=== PATIENT | male | born 1980 | race Caucasian/White ===

== ENCOUNTER 2024-02-01 09:52 | Inpatient (IN) | payer OTHER ==
[2024-02-01 10:10] VITALS: BMI 42.8
[2024-02-01] MEDS ORDERED: LOPERAMIDE HCL 2 MG CAPSULE PO PRN (10:49)
[2024-02-01] MEDS ORDERED: MAGNESIUM HYDROX 2400MG/30ML ORAL SUSPENSION 30 ML CUP PO PRN (10:49)
[2024-02-01] MEDS ORDERED: NICOTINE POLACRILEX 2 MG GUM BUC PRN (10:49)
[2024-02-01] MEDS ORDERED: NALOXONE (NYS OPIOID OVERDOSE PROGRAM) 4 MG/0.1 ML SPRAY NS PRN (10:49)
[2024-02-01] MEDS ORDERED: POLYETHYLENE GLYCOL (HEALTHYLAX) 3350 17 GM PACKET PO PRN (10:49)
[2024-02-01] MEDS ORDERED: ACETAMINOPHEN 325 MG TABLET (FP) PO PRN (10:49)
[2024-02-01] MEDS ORDERED: IBUPROFEN 600 MG TABLET (FP) PO PRN (10:49)
[2024-02-01] MEDS ORDERED: NALOXONE (NARCAN) HCL 4 MG/0.1 ML SPRAY NS PRN (10:49)
[2024-02-01] MEDS ORDERED: guaiFENesin 600 MG TABLET.ER (FP) PO PRN (10:49)
[2024-02-01] MEDS ORDERED: BISMUTH SUBSALICYLATE 262 MG/15 ML BTL PO PRN (10:49)
[2024-02-01] MEDS ORDERED: ONDANSETRON *ODT* 4 MG TABLET SL PRN (10:49)
[2024-02-01] MEDS ORDERED: DICYCLOMINE HCL 10 MG CAPSULE PO PRN (10:49)
[2024-02-01] MEDS ORDERED: hydrOXYzine PAMOATE 25 MG CAPSULE (FP) PO PRN (10:49)
[2024-02-01] MEDS ORDERED: BENZONATATE 200 MG CAPSULE PO PRN (10:49)
[2024-02-01] MEDS ORDERED: diazePAM 5 MG TABLET PO PRN (10:49)
[2024-02-01] MEDS ORDERED: MAG HYDROX/AL HYDROX/SIMETH 30 ML UNIT-DOSE CUP PO PRN (10:49)
[2024-02-01] MEDS ORDERED: IBUPROFEN 400 MG TABLET (FP) PO PRN (10:49)
[2024-02-01] MEDS ORDERED: BENZOCAINE/MENTHOL (CHLORASEPTIC ) LOZENGE MM PRN (10:49)
[2024-02-01] MEDS ORDERED: diazePAM 5 MG TABLET ONE (11:43)
[2024-02-01] MEDS ORDERED: INSULIN (NOVOLOG) ASPART 100 UNITS/ML 10ML VIAL ONE (11:44)
[2024-02-01] MEDS: diazePAM 5 MG TABLET PO SCH (11:45)
[2024-02-01] MEDS: INSULIN ASPART SLIDING SCALE (NOVOLOG) 1 VIAL SQ SCH (11:46)
[2024-02-01] MEDS: amLODIPine BESYLATE 5 MG TABLET (FP) PO ONE (13:36)
[2024-02-01] MEDS: METHOCARBAMOL 500 MG TABLET PO PRN (17:34)
[2024-02-01] MEDS: chlordiazePOXIDE HCL 25 MG CAPSULE PO PRN (18:28)
[2024-02-01] MEDS: INSULIN (LEVEMIR) 100 UNITS/ML UNITS SQ SCH (22:03)
[2024-02-01] MEDS: ATORVASTATIN CA 10 MG TABLET (FP) PO SCH (22:06)
[2024-02-01] MEDS: SACUBITRIL/VALSARTAN 24 MG-26 MG TABLET PO SCH (22:06)
[2024-02-01] MEDS: MELATONIN 5 MG TABLETS PO SCH (22:06)
[2024-02-01] MEDS: METOPROLOL TARTRATE 50 MG TABLET (FP) PO SCH (22:06)
[2024-02-01] MEDS: THIAMINE 100 MG TABLET PO SCH (22:06)
[2024-02-01] MEDS: ALBUTEROL SO4 HFA INHALER IH PRN (22:08)
[2024-02-01] MEDS: chlordiazePOXIDE HCL 25 MG CAPSULE PO SCH (22:09)
[2024-02-02] MEDS ORDERED: methaDONE HCL 10 MG TABLET PO SCH ×2 (08:30→09:15)
[2024-02-02] MEDS: methaDONE 40 MG, methaDONE 10 MG PO SCH (09:23)
[2024-02-02] MEDS ORDERED: PATIENT'S OWN MEDICATION (NON-FORMULARY) (Fluticasone Propion/Salmeterol [Wixela 250-50 In IH SCH (10:00)
[2024-02-02] MEDS ORDERED: methaDONE HCL 10 MG TABLET PO ONE (10:00)
[2024-02-02] MEDS: UMECLIDINIUM/VILANTEROL (ANORO) 62.5/25 MCG INHALER IH SCH (10:24)
[2024-02-02] MEDS: methaDONE 40 MG, methaDONE 30 MG PO SCH (10:25)
[2024-02-02] MEDS: amLODIPine BESYLATE 5 MG TABLET (FP) PO SCH (10:26)
[2024-02-02] MEDS: FOLIC ACID 1 MG TABLET (FP) PO SCH (10:26)
[2024-02-02] MEDS: PRENATAL VITAMINS W/ FOLIC ACID TABLET (FP) PO SCH (10:26)
[2024-02-02] MEDS: cloNIDine HCL 0.1 MG TABLET PO SCH (10:26)
[2024-02-02] MEDS: ASPIRIN 81 MG CHEWABLE TABLETS PO SCH (10:26)
[2024-02-02] MEDS: DIGOXIN 0.125 MG TABLET PO SCH (10:45)
[2024-02-02 11:20] LABS: HEMATOCRIT 44.8 % (35.4-49); HEMOGLOBIN 15.6 GM/dL (11.7-16.9); MCH 35.2 pg (25.7-33.7); MCHC 34.9 g/dl (32.0-35.9); MEAN CELL VOLUME 101.1 fl (80-96); MEAN PLT VOLUME 8.2 fl (7.5-11.1); PLATELET COUNT 139 10^3/uL (134-434); RBC 4.43 M/mm3 (4.00-5.60); RDW 13.4 % (11.9-15.9); WHITE BLOOD COUNT 6.5 K/mm3 (4.0-10.0)
[2024-02-02] MEDS ORDERED: INSULIN ASPART SLIDING SCALE (NOVOLOG) 1 VIAL SQ ONE (12:04)
[2024-02-02 13:24] LABS: POTASSIUM 4.4 mmol/L (3.5-5.1)
[2024-02-02 13:27] LABS: BLOOD UREA NITROGEN 9.4 mg/dL (7-18); CALCIUM 9.7 mg/dL (8.5-10.1)
[2024-02-02 13:30] LABS: CREATININE 0.7 mg/dL (0.55-1.3)
[2024-02-02 13:31] LABS: BILIRUBIN,TOTAL 2.2 mg/dL (0.2-1); TOT PROT 8.2 g/dl (6.4-8.2)
[2024-02-03] MEDS: chlordiazePOXIDE HCL 25 MG CAPSULE PO SCH (05:41)
[2024-02-03] MEDS ORDERED: diazePAM 5 MG TABLET PO SCH (06:00)
[2024-02-03] MEDS ORDERED: methaDONE HCL 10 MG TABLET PO ONE (10:00)
[2024-02-04] MEDS ORDERED: chlordiazePOXIDE HCL 10 MG CAPSULE PO PRN
[2024-02-04] MEDS ORDERED: cloNIDine HCL 0.1 MG TABLET PO PRN
[2024-02-04] MEDS: chlordiazePOXIDE HCL 10 MG CAPSULE PO SCH (05:51)
[2024-02-04] MEDS ORDERED: diazePAM 5 MG TABLET PO SCH (06:00)
[2024-02-04] MEDS ORDERED: methaDONE HCL 10 MG TABLET PO ONE (10:00)
[2024-02-04] MEDS: ERGOCALCIFEROL (VIT D2) 50,000 UNIT (1.25 MG) CAPSULE PO SCH (10:26)
[2024-02-04] MEDS ORDERED: INSULIN ASPART SLIDING SCALE (NOVOLOG) 1 VIAL SQ ONE (12:18)
[2024-02-05] MEDS: chlordiazePOXIDE HCL 10 MG CAPSULE PO SCH (05:31)
[2024-02-05] MEDS ORDERED: diazePAM 5 MG TABLET PO ONE (06:00)
[2024-02-05] MEDS ORDERED: methaDONE HCL 10 MG TABLET PO ONE (10:00)
[2024-02-06] MEDS: chlordiazePOXIDE HCL 10 MG CAPSULE PO ONE (05:39)
[2024-02-06] MEDS ORDERED: NALOXONE (NYS OPIOID OVERDOSE PROGRAM) 4 MG/0.1 ML SPRAY NS PRN (08:00)
[2024-02-06 09:19] VITALS: RESP 18
[2024-02-06] MEDS ORDERED: methaDONE HCL 10 MG TABLET PO ONE (10:00)
[2024-02-06] MEDS ORDERED: hydrOXYzine PAMOATE 50 MG CAPSULE (FP) PO PRN (10:49)
[2024-02-06] MEDS ORDERED: INSULIN ASPART SLIDING SCALE (NOVOLOG) 1 VIAL SQ ONE (11:45)
[2024-02-06 13:15] VITALS: BP 95/62; PULSE 78; TEMP 97.3
[2024-02-06] MEDS ORDERED: PRAZOSIN HCL 1 MG CAPSULE PO SCH (22:00)
[2024-02-07] MEDS ORDERED: SERTRALINE HCL 50 MG TABLET (FP) PO SCH (10:00)
[2024-02-07] MEDS ORDERED: methaDONE HCL 10 MG TABLET PO ONE (10:00)
== END 2024-02-06 14:06 | disposition other institution (70) | DRG 773 ==
LOC: YASAS 09:52 → Y3N 11:43
PROVIDERS: ADMIT Allergy & Immunology; ATTEND Surgery
PROC: HZ2ZZZZ Detoxification Services for Substance Abuse Treatment (ICD-10-PCS; principal; 2024-02-01)
DX: F10.230 Alcohol dependence with withdrawal, uncomplicated (principal); F11.20 Opioid dependence, uncomplicated; F13.20 Sedative, hypnotic or anxiolytic dependence, uncomplicated; F17.210 Nicotine dependence, cigarettes, uncomplicated; F31.9 Bipolar disorder, unspecified; F41.0 Panic disorder [episodic paroxysmal anxiety]; F41.9 Anxiety disorder, unspecified; I11.0 Hypertensive heart disease with heart failure; I50.9 Heart failure, unspecified; E78.5 Hyperlipidemia, unspecified; J44.9 Chronic obstructive pulmonary disease, unspecified; G47.30 Sleep apnea, unspecified; E11.9 Type 2 diabetes mellitus without complications; Z79.4 Long term (current) use of insulin; M54.42 Lumbago with sciatica, left side; G89.29 Other chronic pain; Z86.73 Personal history of transient ischemic attack (TIA), and cerebral infarction without residual deficits
CPT/HCPCS: 36415; 80053; 80162; 80305; 80307; 82962; 85027; 86780; 87811; 93005; 93010

== ENCOUNTER 2024-02-06 14:18 | Inpatient (IN) | payer OTHER ==
[2024-02-06] MEDS ORDERED: ACETAMINOPHEN 325 MG TABLET (FP) PO PRN (17:40)
[2024-02-06] MEDS ORDERED: METHOCARBAMOL 500 MG TABLET PO PRN (17:40)
[2024-02-06] MEDS ORDERED: POLYETHYLENE GLYCOL (HEALTHYLAX) 3350 17 GM PACKET PO PRN (17:40)
[2024-02-06] MEDS ORDERED: BENZONATATE 200 MG CAPSULE PO PRN (17:40)
[2024-02-06] MEDS ORDERED: IBUPROFEN 400 MG TABLET (FP) PO PRN (17:40)
[2024-02-06] MEDS ORDERED: NALOXONE (NARCAN) HCL 4 MG/0.1 ML SPRAY NS PRN (17:40)
[2024-02-06] MEDS ORDERED: guaiFENesin 600 MG TABLET.ER (FP) PO PRN (17:40)
[2024-02-06] MEDS ORDERED: NALOXONE HCL 0.4 MG/ML VIAL IVPUSH PRN (17:40)
[2024-02-06] MEDS ORDERED: LOPERAMIDE HCL 2 MG CAPSULE PO PRN (17:40)
[2024-02-06] MEDS ORDERED: MAG HYDROX/AL HYDROX/SIMETH 30 ML UNIT-DOSE CUP PO PRN (17:40)
[2024-02-06] MEDS: ATORVASTATIN CA 10 MG TABLET (FP) PO SCH (21:43)
[2024-02-06] MEDS: THIAMINE 100 MG TABLET PO SCH (21:43)
[2024-02-06] MEDS: SACUBITRIL/VALSARTAN 24 MG-26 MG TABLET PO SCH (21:44)
[2024-02-06] MEDS: METOPROLOL TARTRATE 50 MG TABLET (FP) PO SCH (21:46)
[2024-02-06] MEDS: MELATONIN 5 MG TABLETS PO SCH (21:47)
[2024-02-06] MEDS: INSULIN (LEVEMIR) 100 UNITS/ML UNITS SQ SCH (21:48)
[2024-02-07] MEDS ORDERED: methaDONE HCL 40 MG DISPERSABLE TABLET PO SCH (06:00)
[2024-02-07] MEDS: methaDONE 40 MG, methaDONE 30 MG PO SCH (06:25)
[2024-02-07] MEDS: hydrOXYzine PAMOATE 25 MG CAPSULE (FP) PO PRN ×2 (06:25→14:59)
[2024-02-07] MEDS ORDERED: hydrOXYzine PAMOATE 25 MG CAPSULE (FP) PO PRN (08:30)
[2024-02-07] MEDS ORDERED: PATIENT'S OWN MEDICATION (NON-FORMULARY) (Fluticasone Propion/Salmeterol [Wixela 250-50 In IH SCH (10:00)
[2024-02-07] MEDS: ASPIRIN 81 MG CHEWABLE TABLETS PO SCH (10:01)
[2024-02-07] MEDS: PRENATAL VITAMINS W/ FOLIC ACID TABLET (FP) PO SCH (10:01)
[2024-02-07] MEDS: amLODIPine BESYLATE 5 MG TABLET (FP) PO SCH (10:01)
[2024-02-07] MEDS: UMECLIDINIUM/VILANTEROL (ANORO) 62.5/25 MCG INHALER IH SCH (10:02)
[2024-02-07] MEDS: DIGOXIN 0.125 MG TABLET PO SCH (10:04)
[2024-02-07] MEDS: SERTRALINE HCL 25 MG TABLET (FP) PO SCH (10:05)
[2024-02-07] MEDS: PNEUMOC 20-VAL CONJ-DIP CRM/PF 0.5 ML SYRINGE IM ONE (11:57)
[2024-02-07] MEDS: PRAZOSIN HCL 1 MG CAPSULE PO SCH (21:42)
[2024-02-08] MEDS ORDERED: INSULIN (NOVOLOG) ASPART 100 UNITS/ML 10ML VIAL ONE ×2 (11:04→17:37)
[2024-02-08] MEDS: INSULIN ASPART SLIDING SCALE (NOVOLOG) 1 VIAL SQ SCH (11:06)
[2024-02-08] MEDS ORDERED: INSULIN ASPART SLIDING SCALE (NOVOLOG) 1 VIAL SQ SCH (16:30)
[2024-02-09] MEDS ORDERED: INSULIN (NOVOLOG) ASPART 100 UNITS/ML 10ML VIAL ONE ×2 (06:19→12:04)
[2024-02-10] MEDS: ALBUTEROL SO4 HFA INHALER IH PRN (10:30)
[2024-02-10] MEDS ORDERED: INSULIN (NOVOLOG) ASPART 100 UNITS/ML 10ML VIAL ONE (12:16)
[2024-02-11] MEDS: METOPROLOL TARTRATE 50 MG TABLET (FP) PO SCH (10:40)
[2024-02-11] MEDS ORDERED: INSULIN (NOVOLOG) ASPART 100 UNITS/ML 10ML VIAL ONE (12:02)
[2024-02-11] MEDS: MAGNESIUM HYDROX 2400MG/30ML ORAL SUSPENSION 30 ML CUP PO PRN (21:43)
[2024-02-12] MEDS ORDERED: INSULIN (NOVOLOG) ASPART 100 UNITS/ML 10ML VIAL ONE ×3 (07:19→22:21)
[2024-02-12] MEDS: IBUPROFEN 600 MG TABLET (FP) PO PRN (10:05)
[2024-02-12] MEDS: GABAPENTIN 300 MG CAPSULE PO SCH (14:43)
[2024-02-12] MEDS: amLODIPine BESYLATE 5 MG TABLET (FP) PO SCH (14:43)
[2024-02-12] MEDS: SACUBITRIL/VALSARTAN 24 MG-26 MG TABLET PO SCH ×2 (14:43→21:54)
[2024-02-12] MEDS: SACUBITRIL/VALSARTAN 24 MG-26 MG TABLET PO ONE (15:34)
[2024-02-13] MEDS ORDERED: INSULIN (NOVOLOG) ASPART 100 UNITS/ML 10ML VIAL ONE (11:49)
[2024-02-14] MEDS: methaDONE 40 MG, methaDONE 30 MG PO SCH (06:02)
[2024-02-14] MEDS ORDERED: INSULIN (NOVOLOG) ASPART 100 UNITS/ML 10ML VIAL ONE ×2 (06:26→11:55)
[2024-02-15] MEDS: BENZOCAINE/MENTHOL (CHLORASEPTIC ) LOZENGE MM PRN (10:03)
[2024-02-15 14:13] LABS: INR 1.2 (0.83-1.09); PROTHROMBIN TIME (PATIENT) 13.5 SEC (9.7-13.0)
[2024-02-15] MEDS ORDERED: INSULIN (NOVOLOG) ASPART 100 UNITS/ML 10ML VIAL ONE (16:31)
[2024-02-15] MEDS ORDERED: INSULIN (LEVEMIR) 100 UNITS/ML UNITS SQ ONE (21:02)
[2024-02-16] MEDS ORDERED: INSULIN (NOVOLOG) ASPART 100 UNITS/ML 10ML VIAL ONE ×2 (12:08→22:00)
[2024-02-17] MEDS ORDERED: INSULIN (NOVOLOG) ASPART 100 UNITS/ML 10ML VIAL ONE ×2 (11:04→16:34)
[2024-02-17] MEDS: LACTULOSE 20 GM/30 ML UDC (FOR ORAL USE ONLY) PO SCH (21:47)
[2024-02-19] MEDS ORDERED: INSULIN (NOVOLOG) ASPART 100 UNITS/ML 10ML VIAL ONE (05:59)
[2024-02-19 06:31] VITALS: BP 111/61; RESP 18; TEMP 97.8
[2024-02-19] MEDS: NALOXONE (NYS OPIOID OVERDOSE PROGRAM) 4 MG/0.1 ML SPRAY NS SCH (09:38)
[2024-02-19 09:40] VITALS: PULSE 58
== END 2024-02-19 10:35 | disposition home or self-care (01) | DRG 772 ==
LOC: YASAS 14:18 → Y5N 14:19
PROVIDERS: ADMIT Surgery; ATTEND Psychiatry & Neurology Pain Medicine
PROC: HZ42ZZZ Group Counseling for Substance Abuse Treatment, Cognitive-Behavioral (ICD-10-PCS; principal; 2024-02-06)
DX: F10.20 Alcohol dependence, uncomplicated (principal); F11.20 Opioid dependence, uncomplicated; F13.20 Sedative, hypnotic or anxiolytic dependence, uncomplicated; F17.210 Nicotine dependence, cigarettes, uncomplicated; F31.9 Bipolar disorder, unspecified; F20.9 Schizophrenia, unspecified; F19.282 Other psychoactive substance dependence with psychoactive substance-induced sleep disorder; G47.33 Obstructive sleep apnea (adult) (pediatric); I25.10 Atherosclerotic heart disease of native coronary artery without angina pectoris; I11.0 Hypertensive heart disease with heart failure; I50.9 Heart failure, unspecified; Z95.5 Presence of coronary angioplasty implant and graft; J41.1 Mucopurulent chronic bronchitis; K21.9 Gastro-esophageal reflux disease without esophagitis; E78.2 Mixed hyperlipidemia; E11.9 Type 2 diabetes mellitus without complications; Z79.4 Long term (current) use of insulin; M54.42 Lumbago with sciatica, left side; G89.29 Other chronic pain
CPT/HCPCS: 36415; 80162; 82140; 82652; 82962; 83735; 85610; 86803; 87522; 90677; G0009

== ENCOUNTER 2024-06-07 22:15 | Inpatient (IN) | payer OTHER ==
[2024-06-07] MEDS: chlordiazePOXIDE HCL 25 MG CAPSULE PO ONE (23:01)
[2024-06-07] MEDS ORDERED: NALOXONE HCL 0.4 MG/ML VIAL ONE (23:03)
[2024-06-07 23:17] LABS: HEMATOCRIT 34.4 % (40.1-51.0); HEMOGLOBIN 12.5 g/dL (13.7-17.5); MCHC 36.3 g/dl (32.3-36.5); MEAN CELL VOLUME 92.5 fl (79.0-92.2); MEAN PLT VOLUME 9.5 fl (9.4-12.4); PLATELET COUNT # 79 x10^3/uL (163-337); RDW 21.6 % (12.1-15.9)
[2024-06-07 23:36] LABS: POTASSIUM 3.9 mmol/L (3.5-5.1)
[2024-06-07 23:39] LABS: ALBUMIN 2.5 g/dl (3.4-5.0); BLOOD UREA NITROGEN 8.8 mg/dL (7-18)
[2024-06-07 23:42] LABS: CREATININE 0.9 mg/dL (0.55-1.3)
[2024-06-07 23:43] LABS: BILIRUBIN,TOTAL 5.2 mg/dL (0.2-1); TOT PROT 7.6 g/dl (6.4-8.2)
[2024-06-07 23:47] LABS: N-TERMINAL BNP 69.6 pg/ml (5-125)
[2024-06-07 23:49] LABS: VENOUS BASE EXCESS 2.8 mmol/L (-2-2); VENOUS O2 SATURATION 92.2 % (70-80); VENOUS PCO2 45.5 mmHg (38-52); VENOUS PH 7.408 (7.310-7.410)
[2024-06-08 00:40] LABS: CHOLESTEROL 252 mg/dL (50-200)
[2024-06-08 00:41] LABS: LDL CHOLESTEROL (ONLY SJRH) 152 mg/dL (5-100)
[2024-06-08 00:42] LABS: HDL CHOLESTEROL 22 mg/dL (40-60)
[2024-06-08] MEDS ORDERED: chlordiazePOXIDE HCL 25 MG CAPSULE ONE (00:56)
[2024-06-08] MEDS: chlordiazePOXIDE HCL 25 MG CAPSULE PO ONE (01:01)
[2024-06-08] MEDS: LACTULOSE 20 GM/30 ML UDC (FOR RECTAL USE ONLY) PR ONE (01:21)
[2024-06-08] MEDS ORDERED: LACTULOSE 20 GM/30 ML UDC (FOR ORAL USE ONLY) ONE (01:43)
[2024-06-08] MEDS: LACTULOSE 20 GM/30 ML UDC (FOR ORAL USE ONLY) PO ONE (01:53)
[2024-06-08] MEDS: SODIUM CHLORIDE 1,000 ML IV SCH (01:53)
[2024-06-08 02:07] LABS: INR 1.59 (0.83-1.09); PROTHROMBIN TIME (PATIENT) 17.5 SEC (9.7-13.0)
[2024-06-08] MEDS ORDERED: LORazepam 1 MG TABLET PO PRN (02:23)
[2024-06-08 02:34] LABS: URINE APPEARANCE CLEAR; URINE BILIRUBIN 1+ (NEGATIVE); URINE COLOR DK YELLOW; URINE GLUCOSE (UA) NEGATIVE (NEGATIVE); URINE KETONE NEGATIVE (NEGATIVE); URINE LEUK ESTERASE NEGATIVE (NEGATIVE); URINE NITRITE NEGATIVE (NEGATIVE); URINE PROTEIN NEGATIVE (NEGATIVE)
[2024-06-08 03:00] LABS: BILIRUBIN,DIRECT 3.8 mg/dL (0.0-0.2)
[2024-06-08] MEDS ORDERED: PIPERACILLIN/TAZOB 3.375 GM 3.375 GM/50 ML BAG IVPB ONE ×3 (04:39→17:58)
[2024-06-08] MEDS ORDERED: VANCOMYCIN 1 GM PREMIX (F) 1 GM/200 ML BAG ONE (04:49)
[2024-06-08] MEDS: PIPERACILLIN/TAZOB 3.375 GM 3.375 GM in DEXTROSE 5%-WATER - 50 ML IVPB SCH ×2 (04:49→05:12)
[2024-06-08] MEDS: LORazepam 1 MG TABLET PO SCH (04:49)
[2024-06-08] MEDS: VANCOMYCIN 1 GM PREMIX (F) 1 GM/200 ML BAG IVPB ONE (05:15)
[2024-06-08] MEDS ORDERED: ALBUTEROL SO4 HFA INHALER IH PRN (05:19)
[2024-06-08] MEDS ORDERED: DIVALPROEX SODIUM 250 MG TABLET E.C. ONE (06:28)
[2024-06-08] MEDS: GABAPENTIN 300 MG CAPSULE PO SCH (06:39)
[2024-06-08] MEDS: DIVALPROEX SODIUM 500 MG TABLET E.C. PO SCH (06:39)
[2024-06-08 07:04] LABS: POTASSIUM 3.6 mmol/L (3.5-5.1)
[2024-06-08 07:06] LABS: CALCIUM 7.4 mg/dL (8.5-10.1)
[2024-06-08 07:07] LABS: ALBUMIN 2.2 g/dl (3.4-5.0); BLOOD UREA NITROGEN 9.3 mg/dL (7-18)
[2024-06-08 07:10] LABS: CREATININE 0.7 mg/dL (0.55-1.3); PHOSPHOROUS 3.1 mg/dL (2.5-4.9)
[2024-06-08 07:11] LABS: BILIRUBIN,TOTAL 4.2 mg/dL (0.2-1)
[2024-06-08 07:12] LABS: TOT PROT 6.7 g/dl (6.4-8.2)
[2024-06-08 07:27] LABS: HEMATOCRIT 31.7 % (40.1-51.0); HEMOGLOBIN 11.3 g/dL (13.7-17.5); MCHC 35.6 g/dl (32.3-36.5); MEAN CELL VOLUME 93.8 fl (79.0-92.2); MEAN PLT VOLUME 9.9 fl (9.4-12.4); PLATELET COUNT # 73 x10^3/uL (163-337); RDW 21.1 % (12.1-15.9)
[2024-06-08 08:03] LABS: HIV INTERPRETATION NEGATIVE (NEGATIVE)
[2024-06-08] MEDS: INSULIN ASPART SLIDING SCALE (NOVOLOG) 1 VIAL SQ SCH (08:05)
[2024-06-08 08:09] LABS: BILIRUBIN,DIRECT 3.3 mg/dL (0.0-0.2)
[2024-06-08] MEDS ORDERED: DIGOXIN 0.125 MG TABLET ONE (10:41)
[2024-06-08] MEDS ORDERED: METOPROLOL TARTRATE 50 MG TABLET (FP) ONE (10:41)
[2024-06-08] MEDS ORDERED: SERTRALINE HCL 50 MG TABLET (FP) ONE (10:41)
[2024-06-08] MEDS ORDERED: amLODIPine BESYLATE 10 MG TABLET (FP) ONE (10:41)
[2024-06-08] MEDS ORDERED: SACUBITRIL/VALSARTAN 24 MG-26 MG TABLET ONE (10:41)
[2024-06-08] MEDS ORDERED: ASPIRIN 81 MG CHEWABLE TABLETS ONE (10:41)
[2024-06-08] MEDS: DIGOXIN 0.125 MG TABLET PO SCH (10:50)
[2024-06-08] MEDS: SACUBITRIL/VALSARTAN 24 MG-26 MG TABLET PO SCH (10:50)
[2024-06-08] MEDS: ASPIRIN 81 MG CHEWABLE TABLETS PO SCH (10:50)
[2024-06-08] MEDS: SERTRALINE HCL 50 MG TABLET (FP) PO SCH (10:50)
[2024-06-08] MEDS: METOPROLOL TARTRATE 50 MG TABLET (FP) PO SCH (10:50)
[2024-06-08] MEDS: amLODIPine BESYLATE 10 MG TABLET (FP) PO SCH (10:50)
[2024-06-08] MEDS: UMECLIDINIUM/VILANTEROL (ANORO) 62.5/25 MCG INHALER IH SCH (11:00)
[2024-06-08] MEDS ORDERED: LORazepam 1 MG TABLET ONE ×2 (11:58→16:55)
[2024-06-08] MEDS ORDERED: methaDONE HCL 10 MG TABLET ONE (12:41)
[2024-06-08] MEDS ORDERED: methaDONE HCL 40 MG DISPERSABLE TABLET ONE (13:07)
[2024-06-08] MEDS ORDERED: GABAPENTIN 300 MG CAPSULE ONE (14:41)
[2024-06-08] MEDS ORDERED: DIVALPROEX SODIUM 500 MG TABLET E.C. ONE (14:41)
[2024-06-08] MEDS: methaDONE HCL 40 MG DISPERSABLE TABLET PO SCH (16:50)
[2024-06-08] MEDS: PIPERACILLIN/TAZOB 3.375 GM 50 ML IVPB SCH (21:27)
[2024-06-09] MEDS: PIPERACILLIN/TAZOB 3.375 GM 50 ML IVPB SCH (00:32)
[2024-06-09 03:35] VITALS: BMI 40.5
[2024-06-09] MEDS: LORazepam 1 MG TABLET PO SCH (05:08)
[2024-06-09 08:34] LABS: ABSOLUTE IMMATURE GRANULOCYTES 0.01 x10^3/uL (0.0-0.031); BASOPHILS # 0.05 x10^3/uL (0.01-0.08); EOSINOPHILS # 0.11 x10^3/uL (0.04-0.54); HEMOGLOBIN 12.8 g/dL (13.7-17.5); MCHC 35.6 g/dl (32.3-36.5); MEAN CELL VOLUME 95.2 fl (79.0-92.2); MEAN PLT VOLUME 10.5 fl (9.4-12.4); MONOCYTE # 0.65 x10^3/uL (0.30-0.82); MONOCYTE % 11.7 % (5.3-12.2); PLATELET COUNT # 76 x10^3/uL (163-337); RDW 21.2 % (12.1-15.9)
[2024-06-09 08:57] LABS: POTASSIUM 3.9 mmol/L (3.5-5.1)
[2024-06-09 09:06] LABS: BLOOD UREA NITROGEN 7.8 mg/dL (7-18)
[2024-06-09 09:07] LABS: ALBUMIN 2.1 g/dl (3.4-5.0)
[2024-06-09 09:08] LABS: BILIRUBIN,TOTAL 6.1 mg/dL (0.2-1); TOT PROT 7.2 g/dl (6.4-8.2)
[2024-06-09 09:09] LABS: CREATININE 0.8 mg/dL (0.55-1.3)
[2024-06-09] MEDS: PHYTONADIONE 10 MG/1 ML AMP IVPB ONE (17:10)
[2024-06-09 17:46] LABS: BILIRUBIN,DIRECT 3.8 mg/dL (0.0-0.2)
[2024-06-09] MEDS: LORazepam 1 MG TABLET PO PRN (21:24)
[2024-06-10] MEDS ORDERED: LORazepam 0.5 MG TABLET PO PRN
[2024-06-10] MEDS: LORazepam 0.5 MG TABLET PO SCH (06:13)
[2024-06-10 09:24] LABS: ABSOLUTE IMMATURE GRANULOCYTES 0.03 x10^3/uL (0.0-0.031); BASOPHILS # 0.03 x10^3/uL (0.01-0.08); EOSINOPHIL % 2.2 % (0.8-7.0); EOSINOPHILS # 0.12 x10^3/uL (0.04-0.54); HEMATOCRIT 36.9 % (40.1-51.0); MCHC 35.2 g/dl (32.3-36.5); MEAN CELL VOLUME 96.3 fl (79.0-92.2); MEAN PLT VOLUME 10.6 fl (9.4-12.4); MONOCYTE # 0.61 x10^3/uL (0.30-0.82); PLATELET COUNT # 73 x10^3/uL (163-337); RDW 19.8 % (12.1-15.9)
[2024-06-10 09:27] LABS: INR 1.42 (0.83-1.09); PROTHROMBIN TIME (PATIENT) 15.5 SEC (9.7-13.0)
[2024-06-10] MEDS: MULTIVITAMINS THER W-MINERALS COMBO TABLET (FP) PO SCH (09:41)
[2024-06-10 09:52] LABS: CALCIUM 8.4 mg/dL (8.5-10.1)
[2024-06-10 09:55] LABS: ALBUMIN 2.2 g/dl (3.4-5.0)
[2024-06-10 09:58] LABS: CREATININE 0.8 mg/dL (0.55-1.3); MAGNESIUM 1.9 mg/dL (1.8-2.4)
[2024-06-10 09:59] LABS: BILIRUBIN,TOTAL 7.6 mg/dL (0.2-1); TOT PROT 7.6 g/dl (6.4-8.2)
[2024-06-10 12:54] LABS: HCV DIAGNOSTIC IN-HOUSE W/RFLX REACTIVE (NONREACTIVE)
[2024-06-10] MEDS: FAMOTIDINE 20 MG/50 ML IVPB 20 MG/50 ML MG IVPB ONE (21:31)
[2024-06-10] MEDS: POLYETHYLENE GLYCOL (HEALTHYLAX) 3350 17 GM PACKET PO SCH (21:32)
[2024-06-11] MEDS: LORazepam 0.5 MG TABLET PO ONE (06:58)
[2024-06-11 08:54] LABS: INR 1.36 (0.83-1.09)
[2024-06-11 08:55] LABS: ABSOLUTE IMMATURE GRANULOCYTES 0.04 x10^3/uL (0.0-0.031); BASOPHILS # 0.02 x10^3/uL (0.01-0.08); EOSINOPHIL % 2.4 % (0.8-7.0); EOSINOPHILS # 0.11 x10^3/uL (0.04-0.54); HEMATOCRIT 35.2 % (40.1-51.0); HEMOGLOBIN 12.3 g/dL (13.7-17.5); MCHC 34.9 g/dl (32.3-36.5); MEAN CELL VOLUME 95.9 fl (79.0-92.2); MEAN PLT VOLUME 10.5 fl (9.4-12.4); MONOCYTE % 10.7 % (5.3-12.2); PLATELET COUNT # 66 x10^3/uL (163-337); RDW 19.7 % (12.1-15.9)
[2024-06-11 09:09] LABS: POTASSIUM 3.9 mmol/L (3.5-5.1)
[2024-06-11 09:18] LABS: ALBUMIN 2.1 g/dl (3.4-5.0); CALCIUM 8.5 mg/dL (8.5-10.1)
[2024-06-11 09:19] LABS: MAGNESIUM 2.1 mg/dL (1.8-2.4)
[2024-06-11 09:21] LABS: CREATININE 0.8 mg/dL (0.55-1.3)
[2024-06-11 09:23] LABS: BILIRUBIN,TOTAL 6.3 mg/dL (0.2-1); TOT PROT 7.1 g/dl (6.4-8.2)
[2024-06-11] MEDS ORDERED: LORazepam 2 MG/ML SDV VIAL IVPUSH PRN (15:02)
[2024-06-11] MEDS: SODIUM CHLORIDE 250 ML IV STA (15:06)
[2024-06-11] MEDS: SODIUM CHLORIDE 1,000 ML IV SCH (15:06)
[2024-06-11] MEDS: AMOX TR/POT CLAV 875MG/125MG TABLETS (FP) PO SCH (17:16)
[2024-06-11] MEDS ORDERED: SODIUM CHLORIDE 500 ML IV STA (18:11)
[2024-06-11] MEDS ORDERED: METOPROLOL TARTRATE 50 MG TABLET (FP) PO SCH (18:17)
[2024-06-11] MEDS: SACUBITRIL/VALSARTAN 24 MG-26 MG TABLET PO SCH (21:17)
[2024-06-11] MEDS: ATORVASTATIN CA 40 MG TABLET (FP) PO SCH (21:18)
[2024-06-12 08:44] LABS: ABSOLUTE IMMATURE GRANULOCYTES 0.06 x10^3/uL (0.0-0.031); BASOPHILS # 0.03 x10^3/uL (0.01-0.08); EOSINOPHIL % 2.6 % (0.8-7.0); EOSINOPHILS # 0.13 x10^3/uL (0.04-0.54); HEMATOCRIT 36.2 % (40.1-51.0); HEMOGLOBIN 12.3 g/dL (13.7-17.5); MEAN CELL VOLUME 97.6 fl (79.0-92.2); MEAN PLT VOLUME 11.2 fl (9.4-12.4); MONOCYTE # 0.61 x10^3/uL (0.30-0.82); PLATELET COUNT # 68 x10^3/uL (163-337); RDW 19.7 % (12.1-15.9)
[2024-06-12 09:06] LABS: POTASSIUM 4.2 mmol/L (3.5-5.1)
[2024-06-12] MEDS: amLODIPine BESYLATE 10 MG TABLET (FP) PO SCH (09:13)
[2024-06-12] MEDS: DIGOXIN 0.125 MG TABLET PO SCH (09:15)
[2024-06-12 09:29] LABS: ALBUMIN 2.3 g/dl (3.4-5.0)
[2024-06-12 09:30] LABS: BLOOD UREA NITROGEN 8.8 mg/dL (7-18)
[2024-06-12 09:32] LABS: BILIRUBIN,TOTAL 5.1 mg/dL (0.2-1); CREATININE 0.7 mg/dL (0.55-1.3); MAGNESIUM 2.1 mg/dL (1.8-2.4); TOT PROT 7.3 g/dl (6.4-8.2)
[2024-06-12 09:33] LABS: CALCIUM 8.6 mg/dL (8.5-10.1)
[2024-06-12] MEDS: FAMOTIDINE 20 MG TABLET PO ONE (21:47)
[2024-06-13 08:40] LABS: ABSOLUTE IMMATURE GRANULOCYTES 0.06 x10^3/uL (0.0-0.031); BASOPHILS # 0.03 x10^3/uL (0.01-0.08); EOSINOPHIL % 2.3 % (0.8-7.0); EOSINOPHILS # 0.13 x10^3/uL (0.04-0.54); HEMATOCRIT 39.4 % (40.1-51.0); HEMOGLOBIN 13.3 g/dL (13.7-17.5); MCHC 33.8 g/dl (32.3-36.5); MEAN CELL VOLUME 100.3 fl (79.0-92.2); MEAN PLT VOLUME 10.5 fl (9.4-12.4); MONOCYTE # 0.66 x10^3/uL (0.30-0.82); MONOCYTE % 11.8 % (5.3-12.2); PLATELET COUNT # 74 x10^3/uL (163-337)
[2024-06-13 09:14] VITALS: PULSE 71
[2024-06-13 09:19] VITALS: BP 132/67; RESP 20; TEMP 98
[2024-06-13 09:31] LABS: POTASSIUM 4.3 mmol/L (3.5-5.1)
[2024-06-13 09:34] LABS: ALBUMIN 2.5 g/dl (3.4-5.0); BLOOD UREA NITROGEN 9.4 mg/dL (7-18); CALCIUM 9.5 mg/dL (8.5-10.1); MAGNESIUM 2.1 mg/dL (1.8-2.4)
[2024-06-13 09:36] LABS: CREATININE 0.8 mg/dL (0.55-1.3)
[2024-06-13 09:39] LABS: BILIRUBIN,TOTAL 4.7 mg/dL (0.2-1)
== END 2024-06-13 09:58 | disposition other institution (70) | DRG 383 ==
LOC: JER 22:15 → JERBED 06-08 00:19 → J8W 06-08 19:05
PROVIDERS: ADMIT Internal Medicine
DX: L05.01 Pilonidal cyst with abscess (principal); J96.01 Acute respiratory failure with hypoxia; I11.0 Hypertensive heart disease with heart failure; I50.9 Heart failure, unspecified; F20.9 Schizophrenia, unspecified; G81.91 Hemiplegia, unspecified affecting right dominant side; E11.9 Type 2 diabetes mellitus without complications; E78.5 Hyperlipidemia, unspecified; F10.239 Alcohol dependence with withdrawal, unspecified; K70.10 Alcoholic hepatitis without ascites; M54.32 Sciatica, left side; F19.980 Other psychoactive substance use, unspecified with psychoactive substance-induced anxiety disorder; G47.33 Obstructive sleep apnea (adult) (pediatric); I25.10 Atherosclerotic heart disease of native coronary artery without angina pectoris; K21.9 Gastro-esophageal reflux disease without esophagitis; F31.9 Bipolar disorder, unspecified; E11.42 Type 2 diabetes mellitus with diabetic polyneuropathy; J44.9 Chronic obstructive pulmonary disease, unspecified; K74.60 Unspecified cirrhosis of liver; K83.1 Obstruction of bile duct; D69.6 Thrombocytopenia, unspecified; F11.20 Opioid dependence, uncomplicated; E66.01 Morbid (severe) obesity due to excess calories; Z68.41 Body mass index [BMI] 40.0-44.9, adult; Z86.711 Personal history of pulmonary embolism
CPT/HCPCS: 36415; 70450-TC; 70551-TC; 71250-TC; 74176-TC; 74181-TC; 76705-TC; 80053; 80061; 81003; 82140; 82248; 82550; 82553; 82803; 82962; 82977; 83036; 83735; 83880; 84100; 84484; 85025; 85027; 85610; 85651; 85730; 86140; 86704; 86708; 86803; 86850; 86900; 86901; 87070; 87081; 87186; 87205; 87340; 87389; 87517; 87522; 93005; 93010; 93970-TC; 94660; 99291

== ENCOUNTER 2024-08-26 12:49 | Inpatient (IN) | payer OTHER ==
[2024-08-26] MEDS ORDERED: NICOTINE 7 MG/24 HOURS TOPICAL PATCH TD PRN (14:13)
[2024-08-26] MEDS ORDERED: NALOXONE (NARCAN) HCL 4 MG/0.1 ML SPRAY NS PRN (14:13)
[2024-08-26] MEDS ORDERED: LOPERAMIDE HCL 2 MG CAPSULE PO PRN (14:13)
[2024-08-26] MEDS ORDERED: BENZONATATE 200 MG CAPSULE PO PRN (14:13)
[2024-08-26] MEDS ORDERED: IBUPROFEN 400 MG TABLET (FP) PO PRN (14:13)
[2024-08-26] MEDS ORDERED: METHOCARBAMOL 500 MG TABLET PO PRN (14:13)
[2024-08-26] MEDS ORDERED: NALOXONE HCL 0.4 MG/ML VIAL IVPUSH PRN (14:13)
[2024-08-26] MEDS ORDERED: IBUPROFEN 600 MG TABLET (FP) PO PRN (14:13)
[2024-08-26] MEDS ORDERED: NICOTINE POLACRILEX 2 MG GUM BUC PRN (14:13)
[2024-08-26] MEDS ORDERED: guaiFENesin 600 MG TABLET.ER (FP) PO PRN (14:13)
[2024-08-26] MEDS ORDERED: NICOTINE POLACRILEX 2 MG LOZENGE BC PRN (14:13)
[2024-08-26] MEDS ORDERED: MAGNESIUM HYDROX 2400MG/30ML ORAL SUSPENSION 30 ML CUP PO PRN (14:13)
[2024-08-26] MEDS ORDERED: MAG HYDROX/AL HYDROX/SIMETH 30 ML UNIT-DOSE CUP PO PRN (14:13)
[2024-08-26] MEDS ORDERED: BENZOCAINE/MENTHOL (CHLORASEPTIC ) LOZENGE MM PRN (14:13)
[2024-08-26] MEDS ORDERED: POLYETHYLENE GLYCOL (HEALTHYLAX) 3350 17 GM PACKET PO PRN (14:13)
[2024-08-26] MEDS ORDERED: ALBUTEROL SO4 HFA INHALER IH PRN (14:16)
[2024-08-26] MEDS: INSULIN ASPART SLIDING SCALE (NOVOLOG) 1 VIAL SQ SCH (16:59)
[2024-08-26] MEDS: SACUBITRIL/VALSARTAN 24 MG-26 MG TABLET PO SCH (21:00)
[2024-08-26] MEDS: ATORVASTATIN CA 40 MG TABLET (FP) PO SCH (21:00)
[2024-08-26] MEDS: hydrOXYzine PAMOATE 25 MG CAPSULE (FP) PO PRN (21:01)
[2024-08-26] MEDS: MELATONIN 5 MG TABLETS PO SCH (21:01)
[2024-08-26] MEDS: INSULIN GLARGINE (LANTUS) 100 UNITS/ML UNITS SQ SCH (21:03)
[2024-08-26] MEDS: METOPROLOL TARTRATE 50 MG TABLET (FP) PO SCH (21:04)
[2024-08-26] MEDS: THIAMINE 100 MG TABLET PO SCH (22:34)
[2024-08-27] MEDS ORDERED: methaDONE HCL 40 MG DISPERSABLE TABLET PO SCH (06:00)
[2024-08-27] MEDS: SERTRALINE HCL 50 MG TABLET (FP) PO SCH (09:59)
[2024-08-27] MEDS: ASPIRIN 81 MG CHEWABLE TABLETS PO SCH (09:59)
[2024-08-27] MEDS: PRENATAL VITAMINS W/ FOLIC ACID TABLET (FP) PO SCH (09:59)
[2024-08-27] MEDS: UMECLIDINIUM/VILANTEROL (ANORO) 62.5/25 MCG INHALER IH SCH (10:01)
[2024-08-27] MEDS: amLODIPine BESYLATE 10 MG TABLET (FP) PO SCH (11:29)
[2024-08-28] MEDS ORDERED: INSULIN ASPART SLIDING SCALE (NOVOLOG) 1 VIAL SQ ONE (12:06)
[2024-08-29] MEDS: TUBERCULIN PPD 5 TU/0.1ML VIAL ID ONE (11:33)
[2024-08-30] MEDS ORDERED: INSULIN ASPART SLIDING SCALE (NOVOLOG) 1 VIAL SQ ONE (06:07)
[2024-08-30] MEDS: ACAMPROSATE CALCIUM 333 MG TABLET.DR PO SCH (11:06)
[2024-08-30 11:39] LABS: INR 1.24 (0.83-1.09); PROTHROMBIN TIME (PATIENT) 13.5 SEC (9.7-13.0)
[2024-09-01] MEDS ORDERED: INSULIN ASPART SLIDING SCALE (NOVOLOG) 1 VIAL SQ ONE ×2 (06:48→10:55)
[2024-09-01] MEDS: APIXABAN 5 MG TABLET PO SCH (21:00)
[2024-09-03] MEDS ORDERED: methaDONE HCL 10 MG TABLET PO SCH (06:00)
[2024-09-04] MEDS ORDERED: INSULIN ASPART SLIDING SCALE (NOVOLOG) 1 VIAL SQ ONE (06:29)
[2024-09-05] MEDS ORDERED: INSULIN ASPART SLIDING SCALE (NOVOLOG) 1 VIAL SQ ONE (07:04)
[2024-09-05] MEDS: ACAMPROSATE CALCIUM 333 MG TABLET.DR PO SCH (14:34)
[2024-09-05] MEDS: MELATONIN 5 MG TABLETS PO SCH (21:37)
[2024-09-07] MEDS ORDERED: INSULIN ASPART SLIDING SCALE (NOVOLOG) 1 VIAL SQ ONE (07:28)
[2024-09-08] MEDS ORDERED: INSULIN ASPART SLIDING SCALE (NOVOLOG) 1 VIAL SQ ONE ×2 (06:02→08:13)
[2024-09-08] MEDS: ACETAMINOPHEN 325 MG TABLET (FP) PO PRN (14:00)
[2024-09-09] MEDS ORDERED: INSULIN ASPART SLIDING SCALE (NOVOLOG) 1 VIAL SQ ONE ×2 (07:46→11:54)
[2024-09-10] MEDS ORDERED: INSULIN ASPART SLIDING SCALE (NOVOLOG) 1 VIAL SQ ONE (12:10)
[2024-09-10] MEDS ORDERED: ATORVASTATIN CA 20 MG TABLET (FP) ONE (21:41)
[2024-09-11] MEDS ORDERED: INSULIN ASPART SLIDING SCALE (NOVOLOG) 1 VIAL SQ ONE (12:19)
[2024-09-11 20:17] VITALS: RESP 18
[2024-09-12 05:34] VITALS: TEMP 97.1
[2024-09-12 09:27] VITALS: BP 122/73; PULSE 78
== END 2024-09-12 09:25 | disposition home or self-care (01) | DRG 772 ==
LOC: YASAS 12:49 → Y3W 12:51
PROVIDERS: ADMIT Psychiatry & Neurology Pain Medicine; ATTEND Psychiatry & Neurology Pain Medicine
PROC: HZ42ZZZ Group Counseling for Substance Abuse Treatment, Cognitive-Behavioral (ICD-10-PCS; principal; 2024-08-26)
DX: F11.20 Opioid dependence, uncomplicated (principal); F10.20 Alcohol dependence, uncomplicated; F13.20 Sedative, hypnotic or anxiolytic dependence, uncomplicated; F17.210 Nicotine dependence, cigarettes, uncomplicated; F31.9 Bipolar disorder, unspecified; F41.9 Anxiety disorder, unspecified; G47.33 Obstructive sleep apnea (adult) (pediatric); I25.10 Atherosclerotic heart disease of native coronary artery without angina pectoris; I11.0 Hypertensive heart disease with heart failure; I50.9 Heart failure, unspecified; Z95.5 Presence of coronary angioplasty implant and graft; K74.60 Unspecified cirrhosis of liver; B18.2 Chronic viral hepatitis C; E78.5 Hyperlipidemia, unspecified; E11.9 Type 2 diabetes mellitus without complications; Z79.4 Long term (current) use of insulin; I69.851 Hemiplegia and hemiparesis following other cerebrovascular disease affecting right dominant side
CPT/HCPCS: 36415; 82140; 82652; 82962; 83735; 85610